=== PATIENT | male | born 1995 | race Caucasian/White ===

== ENCOUNTER 2016-09-14 22:37 | Emergency (ER) | payer OTHER ==
[2016-09-15 00:02] VITALS: BP 137/49
== END 2016-09-15 00:02 | disposition home or self-care (01) ==
LOC: ED 22:37
DX: J06.9 Acute upper respiratory infection, unspecified (principal); R19.7 Diarrhea, unspecified; R10.84 Generalized abdominal pain; R11.10 Vomiting, unspecified
CPT/HCPCS: J1885; Q0162